=== PATIENT | female | born 1965 ===

== ENCOUNTER 2017-10-29 09:25 | Day surgery (SDC) | payer OTHER ==
[2017-10-29] MEDS ORDERED: MORPHINE SULFATE PF 10 MG/10 ML AMPUL IV ONE (12:31)
[2017-10-29] MEDS ORDERED: BUPIVACAINE/EPI PF 0.25% 30 ML VIAL ONE (12:31)
[2017-10-29] MEDS ORDERED: MIDAZOLAM HCL 2 MG/2 ML VIAL ONE (13:06)
[2017-10-29] MEDS ORDERED: FENTANYL CITRATE 100 MCG/2 ML AMPUL ONE ×2 (13:06→14:39)
[2017-10-29] MEDS ORDERED: TRAMADOL HCL 50 MG TABLET ONE (15:35)
== END 2017-10-29 16:10 | disposition home or self-care (01) ==
LOC: DS 09:25
PROVIDERS: ATTEND Orthopaedic Surgery
DX: M23.252 Derangement of posterior horn of lateral meniscus due to old tear or injury, left knee (principal); M94.262 Chondromalacia, left knee; S83.92XA Sprain of unspecified site of left knee, initial encounter; E03.9 Hypothyroidism, unspecified; F32.9 Major depressive disorder, single episode, unspecified
CPT/HCPCS: 36415; 84132; A4663; J2250; J2274; J3010; J3490; J7120